=== PATIENT | female | born 1965 | race Caucasian/White ===

== ENCOUNTER 2018-04-11 00:25 | Inpatient (IN) | payer BC ==
[2018-04-11] MEDS ORDERED: morphine 2 MG INJ IV (01:30)
[2018-04-11] MEDS ORDERED: ONDANSETRON 4 MG INJ IV (01:30)
[2018-04-11] MEDS ORDERED: LORAZEPAM 2 MG INJ IM (01:30)
[2018-04-11] MEDS ORDERED: ACETAMINOPHEN 325 MG TAB PO (01:30)
[2018-04-11] MEDS ORDERED: LORAZEPAM 2 MG INJ (01:51)
[2018-04-11] MEDS: LORAZEPAM 2 MG INJ IV ×3 (02:12→22:07)
[2018-04-11] MEDS: MIRTAZAPINE 15 MG TAB PO ×2 (02:28→21:45)
[2018-04-11 07:03] LABS: ADD MAN DIFF? NO
[2018-04-11 07:12] LABS: BASOPHILS % 0.4 % (0.0-2.0); EOSINOPHILS # 0.1 10^3/ul (0.0-0.5); EOSINOPHILS % 1.7 % (0.0-7.0); HEMATOCRIT 40.3 % (37.0-47.0); HEMOGLOBIN 13.4 g/dl (12.0-16.0); LYMPHOCYTES # 1.8 10^3/ul (0.8-2.9); LYMPHOCYTES % 35.4 % (15.0-51.0); MEAN CORPUSCULAR HEMOGLOBIN 29.1 pg (29.0-33.0); MEAN CORPUSCULAR HGB CONC 33.3 g/dl (32.0-37.0); MEAN CORPUSCULAR VOLUME 87.4 fl (82.0-101.0); MEAN PLATELET VOLUME 10.6 fl (7.4-10.4); MONOCYTE # 0.5 10^3/ul (0.3-0.9); MONOCYTES % 10.1 % (0.0-11.0); NEUTROPHIL # 2.7 10^3/ul (1.6-7.5); NEUTROPHILS % 52.2 % (39.0-77.0); PLATELET COUNT 198 10^3/UL (140-415); RED BLOOD COUNT 4.61 10^6/ul (4.20-5.40); RED CELL DISTRIBUTION WIDTH 12.5 % (11.5-14.5)
[2018-04-11 07:12] LABS: WHITE BLOOD COUNT 5.2 10^3/ul (4.8-10.8)
[2018-04-11 07:26] LABS: HEMOGLOBIN A1C 5.3 % (0-5.9)
[2018-04-11 07:50] LABS: ALANINE AMINOTRANSFERASE 31 IU/L (13-69); ALBUMIN 3.6 g/dl (3.3-4.9); ALBUMIN/GLOBULIN RATIO 1.12; ALKALINE PHOSPHATASE 57 IU/L (42-121); ANION GAP 13 (8-16); ASPARTATE AMINO TRANSFERASE 25 IU/L (15-46); BILIRUBIN,INDIRECT 0.3 mg/dl (0-1.1); BILIRUBIN,TOTAL 0.3 mg/dl (0.2-1.3); BLOOD UREA NITROGEN 12 mg/dl (7-20); CALCIUM 9.2 mg/dl (8.4-10.2); CARBON DIOXIDE 30 mmol/L (21-31); CHLORIDE 106 mmol/L (97-110); CREATININE 0.73 mg/dl (0.44-1.00); GLUCOSE 121 mg/dl (70-220); MAGNESIUM 2.1 mg/dl (1.7-2.5); PHOSPHORUS 3.7 mg/dl (2.5-4.9); POTASSIUM 3.7 mmol/L (3.5-5.1); SODIUM 145 mmol/L (135-144); TOTAL PROTEIN 6.8 g/dl (6.1-8.1)
[2018-04-11] MEDS: ASPIRIN 81 MG TAB PO (08:42)
[2018-04-11] MEDS: LISINOPRIL 10 MG TAB PO (08:42)
[2018-04-11] MEDS: HEPARIN 5,000 UNIT/0.5 ML VIAL SC ×2 (08:53→22:05)
[2018-04-11] MEDS ORDERED: MIRTAZAPINE 15 MG TAB PO (21:00)
[2018-04-11] MEDS: ATORVASTATIN 20 MG TAB PO (21:00)
[2018-04-12 06:34] LABS: ADD MAN DIFF? NO
[2018-04-12 06:40] LABS: BASOPHILS % 0.5 % (0.0-2.0); EOSINOPHILS # 0.1 10^3/ul (0.0-0.5); HEMATOCRIT 39.6 % (37.0-47.0); LYMPHOCYTES % 44.6 % (15.0-51.0); MEAN CORPUSCULAR HGB CONC 32.8 g/dl (32.0-37.0); MEAN CORPUSCULAR VOLUME 88.2 fl (82.0-101.0); MEAN PLATELET VOLUME 10.4 fl (7.4-10.4); MONOCYTE # 0.4 10^3/ul (0.3-0.9); MONOCYTES % 9.6 % (0.0-11.0); NEUTROPHIL # 1.9 10^3/ul (1.6-7.5); NEUTROPHILS % 42.1 % (39.0-77.0); PLATELET COUNT 171 10^3/UL (140-415); RED BLOOD COUNT 4.49 10^6/ul (4.20-5.40); RED CELL DISTRIBUTION WIDTH 12.5 % (11.5-14.5)
[2018-04-12 06:40] LABS: WHITE BLOOD COUNT 4.4 10^3/ul (4.8-10.8)
[2018-04-12 07:10] LABS: ANION GAP 12 (8-16); BLOOD UREA NITROGEN 12 mg/dl (7-20); CALCIUM 9.1 mg/dl (8.4-10.2); CARBON DIOXIDE 27 mmol/L (21-31); CHLORIDE 109 mmol/L (97-110); CREATININE 0.71 mg/dl (0.44-1.00); GLUCOSE 85 mg/dl (70-220); MAGNESIUM 2.1 mg/dl (1.7-2.5); PHOSPHORUS 4.4 mg/dl (2.5-4.9); POTASSIUM 4.1 mmol/L (3.5-5.1); SODIUM 144 mmol/L (135-144)
[2018-04-12] MEDS: LISINOPRIL 10 MG TAB PO (08:34)
[2018-04-12] MEDS: ASPIRIN 81 MG TAB PO (08:34)
[2018-04-12] MEDS: HEPARIN 5,000 UNIT/0.5 ML VIAL SC ×2 (08:40→20:38)
[2018-04-12] MEDS: LORAZEPAM 2 MG INJ IV (20:26)
[2018-04-12] MEDS: ATORVASTATIN 20 MG TAB PO (20:26)
[2018-04-12] MEDS: ZOLPIDEM 5 MG TAB PO (23:24)
[2018-04-13 07:45] LABS: ADD MAN DIFF? NO
[2018-04-13 07:47] LABS: WHITE BLOOD COUNT 4.7 10^3/ul (4.8-10.8)
[2018-04-13 07:47] LABS: BASOPHILS % 0.4 % (0.0-2.0); EOSINOPHILS # 0.1 10^3/ul (0.0-0.5); EOSINOPHILS % 2.5 % (0.0-7.0); HEMATOCRIT 39.5 % (37.0-47.0); HEMOGLOBIN 13.1 g/dl (12.0-16.0); LYMPHOCYTES # 2.1 10^3/ul (0.8-2.9); LYMPHOCYTES % 44.1 % (15.0-51.0); MEAN CORPUSCULAR HEMOGLOBIN 29.2 pg (29.0-33.0); MEAN CORPUSCULAR HGB CONC 33.2 g/dl (32.0-37.0); MEAN PLATELET VOLUME 10.4 fl (7.4-10.4); MONOCYTE # 0.4 10^3/ul (0.3-0.9); MONOCYTES % 9.1 % (0.0-11.0); NEUTROPHIL # 2.1 10^3/ul (1.6-7.5); NEUTROPHILS % 43.7 % (39.0-77.0); PLATELET COUNT 188 10^3/UL (140-415); RED BLOOD COUNT 4.49 10^6/ul (4.20-5.40); RED CELL DISTRIBUTION WIDTH 12.2 % (11.5-14.5)
[2018-04-13 08:40] LABS: ANION GAP 12 (8-16); BLOOD UREA NITROGEN 9 mg/dl (7-20); CALCIUM 9.1 mg/dl (8.4-10.2); CARBON DIOXIDE 29 mmol/L (21-31); CHLORIDE 108 mmol/L (97-110); CREATININE 0.69 mg/dl (0.44-1.00); GLUCOSE 85 mg/dl (70-220); PHOSPHORUS 4.6 mg/dl (2.5-4.9); POTASSIUM 4.2 mmol/L (3.5-5.1); SODIUM 145 mmol/L (135-144)
[2018-04-13 08:46] LABS: CHOLESTEROL 182 mg/dl (100-200)
[2018-04-13 08:46] LABS: CHOL/HDL RATIO 2.9 RATIO; HDL CHOLESTEROL 61 mg/dl (37-92); LDL CHOLESTEROL,CALCULATED 80 mg/dl; TRIGLYCERIDES 207 mg/dl (0-149)
[2018-04-13] MEDS: LISINOPRIL 10 MG TAB PO (08:52)
[2018-04-13] MEDS: ASPIRIN 81 MG TAB PO (08:52)
[2018-04-13] MEDS: HEPARIN 5,000 UNIT/0.5 ML VIAL SC ×2 (09:00→20:38)
[2018-04-13] MEDS ORDERED: morphine LIQ (10 MG/5 ML) CUP PO (15:00)
[2018-04-13] MEDS: ATORVASTATIN 20 MG TAB PO (20:34)
[2018-04-13] MEDS: ZOLPIDEM 5 MG TAB PO (20:41)
[2018-04-14] MEDS: LISINOPRIL 10 MG TAB PO (09:48)
[2018-04-14] MEDS: ASPIRIN 81 MG TAB PO (09:48)
[2018-04-14] MEDS: HEPARIN 5,000 UNIT/0.5 ML VIAL SC ×2 (09:52→20:54)
[2018-04-14] MEDS: LORAZEPAM 2 MG INJ IV (13:32)
[2018-04-14] MEDS: ATORVASTATIN 20 MG TAB PO (20:47)
[2018-04-14] MEDS: PANTOPRAZOLE (EC) 40 MG TAB PO (20:47)
[2018-04-15] MEDS: LORAZEPAM 2 MG INJ IV (00:13)
[2018-04-15] MEDS: ZOLPIDEM 5 MG TAB PO ×2 (03:21→21:05)
[2018-04-15] MEDS: ASPIRIN 81 MG TAB PO (09:24)
[2018-04-15] MEDS: LISINOPRIL 10 MG TAB PO (09:24)
[2018-04-15] MEDS: HEPARIN 5,000 UNIT/0.5 ML VIAL SC ×2 (09:26→21:16)
[2018-04-15] MEDS: CYCLOBENZAPRINE 10 MG TAB PO ×2 (12:48→21:05)
[2018-04-15] MEDS: ATORVASTATIN 20 MG TAB PO (21:05)
[2018-04-15] MEDS: PANTOPRAZOLE (EC) 40 MG TAB PO (21:05)
[2018-04-16] MEDS: LISINOPRIL 10 MG TAB PO (09:35)
[2018-04-16] MEDS: ASPIRIN 81 MG TAB PO (09:35)
[2018-04-16] MEDS: CYCLOBENZAPRINE 10 MG TAB PO ×2 (09:35→13:00)
[2018-04-16] MEDS: HEPARIN 5,000 UNIT/0.5 ML VIAL SC (09:42)
== END 2018-04-16 19:45 | disposition home or self-care (01) | DRG 57 ==
LOC: TEL 00:25 → MS1 04-14 23:50
DX: G25.89 Other specified extrapyramidal and movement disorders (principal); I71.2 Thoracic aortic aneurysm, without rupture; R20.0 Anesthesia of skin; I10 Essential (primary) hypertension; F32.9 Major depressive disorder, single episode, unspecified; M62.838 Other muscle spasm; G47.00 Insomnia, unspecified; D35.00 Benign neoplasm of unspecified adrenal gland; G25.5 Other chorea; Z79.82 Long term (current) use of aspirin; Z79.02 Long term (current) use of antithrombotics/antiplatelets
CPT/HCPCS: 70544; 70549; 70551; 80048; 80053; 80061; 83036; 83735; 84100; 84443; 85025; 93306; 95819; 97110; 97116; 97163

== ENCOUNTER 2018-06-02 03:50 | Observation (INO) | payer BC ==
[2018-06-02] MEDS ORDERED: ACETAMINOPHEN 325 MG TAB PO (05:30)
[2018-06-02] MEDS ORDERED: NACL 0.9% 3 ML SYG IV (05:30)
[2018-06-02] MEDS ORDERED: NITROGLYCERIN (SL) 0.4 MG TAB SL (05:30)
[2018-06-02] MEDS ORDERED: morphine 2 MG INJ IV (05:30)
[2018-06-02] MEDS ORDERED: ONDANSETRON 4 MG INJ IV (05:30)
[2018-06-02 05:58] LABS: ADD MAN DIFF? NO
[2018-06-02 06:04] LABS: WHITE BLOOD COUNT 5.1 10^3/ul (4.8-10.8)
[2018-06-02 06:04] LABS: BASOPHILS % 0.8 % (0.0-2.0); EOSINOPHILS # 0.1 10^3/ul (0.0-0.5); EOSINOPHILS % 1.8 % (0.0-7.0); HEMOGLOBIN 14.4 g/dl (12.0-16.0); LYMPHOCYTES # 1.9 10^3/ul (0.8-2.9); LYMPHOCYTES % 37.6 % (15.0-51.0); MEAN CORPUSCULAR HEMOGLOBIN 29.4 pg (29.0-33.0); MEAN CORPUSCULAR HGB CONC 33.5 g/dl (32.0-37.0); MEAN CORPUSCULAR VOLUME 87.8 fl (82.0-101.0); MEAN PLATELET VOLUME 10.2 fl (7.4-10.4); MONOCYTE # 0.5 10^3/ul (0.3-0.9); MONOCYTES % 9.2 % (0.0-11.0); NEUTROPHIL # 2.6 10^3/ul (1.6-7.5); NEUTROPHILS % 50.4 % (39.0-77.0); PLATELET COUNT 215 10^3/UL (140-415); RED CELL DISTRIBUTION WIDTH 12.9 % (11.5-14.5)
[2018-06-02 06:39] LABS: CREATINE KINASE 61 IU/L (23-200)
[2018-06-02 06:49] LABS: CK INDEX 0.4; CK-MB < 0.22 ng/ml (0.0-2.4); TROPONIN-I < 0.010 ng/ml (0.000-0.120)
[2018-06-02 08:04] LABS: ALANINE AMINOTRANSFERASE 31 IU/L (13-69); ALBUMIN 4.2 g/dl (3.3-4.9); ALBUMIN/GLOBULIN RATIO 1.35; ALKALINE PHOSPHATASE 59 IU/L (42-121); ANION GAP 15 (8-16); ASPARTATE AMINO TRANSFERASE 23 IU/L (15-46); BILIRUBIN,INDIRECT 0.4 mg/dl (0-1.1); BILIRUBIN,TOTAL 0.4 mg/dl (0.2-1.3); BLOOD UREA NITROGEN 8 mg/dl (7-20); CALCIUM 9.7 mg/dl (8.4-10.2); CARBON DIOXIDE 25 mmol/L (21-31); CHLORIDE 106 mmol/L (97-110); CREATININE 0.75 mg/dl (0.44-1.00); GLUCOSE 95 mg/dl (70-220); POTASSIUM 4.3 mmol/L (3.5-5.1); SODIUM 142 mmol/L (135-144); TOTAL PROTEIN 7.3 g/dl (6.1-8.1)
[2018-06-02] MEDS: ASPIRIN 81 MG TAB PO (08:24)
[2018-06-02] MEDS: METOPROLOL (XL) 50 MG TAB PO (09:13)
[2018-06-02] MEDS: METOPROLOL 50 MG TAB PO ×2 (10:45→10:52)
[2018-06-02] MEDS: HYDROCHLOROTHIAZIDE 12.5 MG CAP PO (10:59)
[2018-06-02] MEDS: LOSARTAN 25 MG TAB PO (11:00)
[2018-06-02 12:14] LABS: CREATINE KINASE 55 IU/L (23-200)
[2018-06-02 12:24] LABS: CK INDEX 0.4; CK-MB < 0.22 ng/ml (0.0-2.4)
[2018-06-02 12:41] LABS: TROPONIN-I < 0.010 ng/ml (0.000-0.120)
[2018-06-02] MEDS: SOD CHLORIDE 0.9% 100 ML (13:49)
[2018-06-02] MEDS: IOHEXOL 100 ML (13:49)
[2018-06-02] MEDS: NITROGLYCERIN AEROSOL (4.9 GM) (13:54)
[2018-06-02] MEDS: ATORVASTATIN 20 MG TAB PO (20:53)
[2018-06-02] MEDS: DOXAZOSIN 1 MG TAB PO (21:00)
[2018-06-02] MEDS: ZOLPIDEM 5 MG TAB PO (22:04)
[2018-06-02] MEDS ORDERED: morphine LIQ (10 MG/5 ML) CUP PO (23:30)
[2018-06-03] MEDS: HYDROCHLOROTHIAZIDE 12.5 MG CAP PO (05:34)
[2018-06-03] MEDS: DOCUSATE SODIUM 100 MG CAP PO ×2 (06:19→20:34)
[2018-06-03] MEDS: ASPIRIN 81 MG TAB PO (08:21)
[2018-06-03] MEDS: LOSARTAN 25 MG TAB PO (08:21)
[2018-06-03] MEDS: METOPROLOL (XL) 50 MG TAB PO (08:22)
[2018-06-03] MEDS: BISACODYL (EC) 5 MG TAB PO (11:44)
[2018-06-03] MEDS ORDERED: SOD CHLORIDE 0.9% 100 ML (17:12)
[2018-06-03] MEDS ORDERED: IOHEXOL 300MG/ML 150 ML BTL (17:12)
[2018-06-03] MEDS: ATORVASTATIN 20 MG TAB PO (20:34)
[2018-06-03] MEDS: DOXAZOSIN 1 MG TAB PO (20:36)
[2018-06-03] MEDS: ZOLPIDEM 5 MG TAB PO (22:25)
[2018-06-04] MEDS: HYDROCHLOROTHIAZIDE 12.5 MG CAP PO (06:03)
[2018-06-04 08:41] LABS: ADD MAN DIFF? NO
[2018-06-04 08:47] LABS: BASOPHILS % 0.3 % (0.0-2.0); EOSINOPHILS # 0.1 10^3/ul (0.0-0.5); EOSINOPHILS % 1.7 % (0.0-7.0); HEMATOCRIT 45.2 % (37.0-47.0); HEMOGLOBIN 14.8 g/dl (12.0-16.0); LYMPHOCYTES # 1.8 10^3/ul (0.8-2.9); MEAN CORPUSCULAR HEMOGLOBIN 28.3 pg (29.0-33.0); MEAN CORPUSCULAR HGB CONC 32.7 g/dl (32.0-37.0); MEAN CORPUSCULAR VOLUME 86.4 fl (82.0-101.0); MEAN PLATELET VOLUME 10.6 fl (7.4-10.4); MONOCYTE # 0.5 10^3/ul (0.3-0.9); NEUTROPHIL # 3.6 10^3/ul (1.6-7.5); NEUTROPHILS % 58.8 % (39.0-77.0); PLATELET COUNT 216 10^3/UL (140-415); RED BLOOD COUNT 5.23 10^6/ul (4.20-5.40); RED CELL DISTRIBUTION WIDTH 13.1 % (11.5-14.5)
[2018-06-04] MEDS: ASPIRIN 81 MG TAB PO (09:10)
[2018-06-04] MEDS: LOSARTAN 25 MG TAB PO (09:11)
[2018-06-04] MEDS: METOPROLOL (XL) 50 MG TAB PO (09:11)
[2018-06-04 09:30] LABS: ALANINE AMINOTRANSFERASE 27 IU/L (13-69); ALBUMIN 4.4 g/dl (3.3-4.9); ALBUMIN/GLOBULIN RATIO 1.37; ALKALINE PHOSPHATASE 55 IU/L (42-121); ANION GAP 15 (8-16); ASPARTATE AMINO TRANSFERASE 32 IU/L (15-46); BILIRUBIN,INDIRECT 0.6 mg/dl (0-1.1); BILIRUBIN,TOTAL 0.6 mg/dl (0.2-1.3); BLOOD UREA NITROGEN 13 mg/dl (7-20); CALCIUM 9.4 mg/dl (8.4-10.2); CARBON DIOXIDE 25 mmol/L (21-31); CHLORIDE 105 mmol/L (97-110); CREATININE 0.75 mg/dl (0.44-1.00); GLUCOSE 91 mg/dl (70-220); POTASSIUM 3.8 mmol/L (3.5-5.1); SODIUM 141 mmol/L (135-144); TOTAL PROTEIN 7.6 g/dl (6.1-8.1)
[2018-06-04] MEDS ORDERED: IOHEXOL 14.3 MG(I)/ML (ADULT) BTL PO (14:00)
[2018-06-04] MEDS: IOHEXOL 14.3 MG(I)/ML (ADULT) BTL PO (15:09)
[2018-06-04] MEDS ORDERED: SOD CHLORIDE 0.9% 100 ML (16:04)
[2018-06-04] MEDS ORDERED: IOHEXOL 300MG/ML 150 ML BTL (16:04)
[2018-06-04] MEDS: DOXAZOSIN 2 MG TAB PO (21:00)
[2018-06-04] MEDS: ZOLPIDEM 5 MG TAB PO (21:21)
[2018-06-04] MEDS: ATORVASTATIN 20 MG TAB PO (21:21)
[2018-06-05] MEDS: HYDROCHLOROTHIAZIDE 12.5 MG CAP PO (06:03)
[2018-06-05 08:07] LABS: ADD MAN DIFF? NO
[2018-06-05] MEDS: ASPIRIN 81 MG TAB PO (08:13)
[2018-06-05] MEDS: METOPROLOL (XL) 50 MG TAB PO (08:14)
[2018-06-05] MEDS: LOSARTAN 25 MG TAB PO (08:14)
[2018-06-05 08:17] LABS: WHITE BLOOD COUNT 5.2 10^3/ul (4.8-10.8)
[2018-06-05 08:17] LABS: BASOPHILS % 0.4 % (0.0-2.0); EOSINOPHILS # 0.1 10^3/ul (0.0-0.5); EOSINOPHILS % 1.7 % (0.0-7.0); HEMATOCRIT 42.7 % (37.0-47.0); HEMOGLOBIN 14.1 g/dl (12.0-16.0); LYMPHOCYTES # 1.7 10^3/ul (0.8-2.9); LYMPHOCYTES % 33.1 % (15.0-51.0); MEAN CORPUSCULAR HEMOGLOBIN 28.9 pg (29.0-33.0); MEAN CORPUSCULAR VOLUME 87.5 fl (82.0-101.0); MEAN PLATELET VOLUME 10.6 fl (7.4-10.4); MONOCYTE # 0.5 10^3/ul (0.3-0.9); MONOCYTES % 9.1 % (0.0-11.0); NEUTROPHIL # 2.9 10^3/ul (1.6-7.5); NEUTROPHILS % 55.5 % (39.0-77.0); PLATELET COUNT 204 10^3/UL (140-415); RED BLOOD COUNT 4.88 10^6/ul (4.20-5.40); RED CELL DISTRIBUTION WIDTH 12.9 % (11.5-14.5)
[2018-06-05 09:00] LABS: ANION GAP 11 (8-16); BLOOD UREA NITROGEN 13 mg/dl (7-20); CALCIUM 9.5 mg/dl (8.4-10.2); CARBON DIOXIDE 27 mmol/L (21-31); CHLORIDE 105 mmol/L (97-110); CREATININE 0.72 mg/dl (0.44-1.00); GLUCOSE 88 mg/dl (70-220); POTASSIUM 4.1 mmol/L (3.5-5.1); SODIUM 139 mmol/L (135-144)
[2018-06-05] MEDS: ATORVASTATIN 20 MG TAB PO (20:33)
[2018-06-05] MEDS: DOXAZOSIN 2 MG TAB PO (20:33)
[2018-06-05] MEDS: ZOLPIDEM 5 MG TAB PO (22:22)
[2018-06-06] MEDS: HYDROCHLOROTHIAZIDE 12.5 MG CAP PO (05:38)
[2018-06-06 06:29] LABS: ADD MAN DIFF? NO
[2018-06-06 06:31] LABS: WHITE BLOOD COUNT 5.7 10^3/ul (4.8-10.8)
[2018-06-06 06:31] LABS: BASOPHILS % 0.4 % (0.0-2.0); EOSINOPHILS # 0.1 10^3/ul (0.0-0.5); EOSINOPHILS % 2.1 % (0.0-7.0); HEMOGLOBIN 13.3 g/dl (12.0-16.0); LYMPHOCYTES # 1.8 10^3/ul (0.8-2.9); LYMPHOCYTES % 31.3 % (15.0-51.0); MEAN CORPUSCULAR HEMOGLOBIN 28.4 pg (29.0-33.0); MEAN CORPUSCULAR HGB CONC 32.4 g/dl (32.0-37.0); MEAN CORPUSCULAR VOLUME 87.6 fl (82.0-101.0); MEAN PLATELET VOLUME 10.7 fl (7.4-10.4); MONOCYTE # 0.5 10^3/ul (0.3-0.9); NEUTROPHIL # 3.2 10^3/ul (1.6-7.5); PLATELET COUNT 194 10^3/UL (140-415); RED BLOOD COUNT 4.68 10^6/ul (4.20-5.40)
[2018-06-06 07:07] LABS: ANION GAP 11 (8-16); BLOOD UREA NITROGEN 14 mg/dl (7-20); CALCIUM 9.2 mg/dl (8.4-10.2); CARBON DIOXIDE 26 mmol/L (21-31); CHLORIDE 105 mmol/L (97-110); CREATININE 0.71 mg/dl (0.44-1.00); GLUCOSE 93 mg/dl (70-220); SODIUM 138 mmol/L (135-144)
[2018-06-06] MEDS: ASPIRIN 81 MG TAB PO (09:54)
[2018-06-06] MEDS: METOPROLOL (XL) 50 MG TAB PO (09:55)
[2018-06-06] MEDS: LOSARTAN 25 MG TAB PO (09:55)
== END 2018-06-06 17:25 | disposition home or self-care (01) ==
LOC: TEL 03:50
DX: R07.9 Chest pain, unspecified (principal); R00.2 Palpitations; I10 Essential (primary) hypertension; F32.9 Major depressive disorder, single episode, unspecified; G47.00 Insomnia, unspecified; I71.2 Thoracic aortic aneurysm, without rupture; K21.9 Gastro-esophageal reflux disease without esophagitis; F41.9 Anxiety disorder, unspecified; Z88.0 Allergy status to penicillin
CPT/HCPCS: 71260; 71550; 74177; 74181; 75574; 80048; 80053; 82382; 82384; 82550; 82553; 83036; 83835; 84443; 84484; 85025; 93005; G0378

== ENCOUNTER 2018-06-18 01:40 | Inpatient (IN) | payer BC ==
[2018-06-18] MEDS ORDERED: ONDANSETRON 4 MG INJ IV ×2 (03:00→10:00)
[2018-06-18] MEDS ORDERED: ACETAMINOPHEN 325 MG TAB PO ×2 (03:00→10:00)
[2018-06-18 06:40] LABS: ADD MAN DIFF? NO
[2018-06-18 06:44] LABS: BASOPHILS % 0.2 % (0.0-2.0); EOSINOPHILS # 0.1 10^3/ul (0.0-0.5); EOSINOPHILS % 2.3 % (0.0-7.0); HEMATOCRIT 38.5 % (37.0-47.0); HEMOGLOBIN 12.6 g/dl (12.0-16.0); LYMPHOCYTES # 1.9 10^3/ul (0.8-2.9); LYMPHOCYTES % 36.1 % (15.0-51.0); MEAN CORPUSCULAR HEMOGLOBIN 29.1 pg (29.0-33.0); MEAN CORPUSCULAR HGB CONC 32.7 g/dl (32.0-37.0); MEAN CORPUSCULAR VOLUME 88.9 fl (82.0-101.0); MEAN PLATELET VOLUME 10.4 fl (7.4-10.4); MONOCYTE # 0.5 10^3/ul (0.3-0.9); NEUTROPHIL # 2.7 10^3/ul (1.6-7.5); NEUTROPHILS % 52.2 % (39.0-77.0); PLATELET COUNT 182 10^3/UL (140-415); RED BLOOD COUNT 4.33 10^6/ul (4.20-5.40)
[2018-06-18 06:44] LABS: WHITE BLOOD COUNT 5.2 10^3/ul (4.8-10.8)
[2018-06-18 07:16] LABS: ALANINE AMINOTRANSFERASE 22 IU/L (13-69); ALBUMIN 3.6 g/dl (3.3-4.9); ALKALINE PHOSPHATASE 45 IU/L (42-121); ANION GAP 10 (8-16); ASPARTATE AMINO TRANSFERASE 22 IU/L (15-46); BILIRUBIN,INDIRECT 0.3 mg/dl (0-1.1); BILIRUBIN,TOTAL 0.3 mg/dl (0.2-1.3); BLOOD UREA NITROGEN 10 mg/dl (7-20); CALCIUM 9.1 mg/dl (8.4-10.2); CARBON DIOXIDE 25 mmol/L (21-31); CHLORIDE 109 mmol/L (97-110); CREATININE 0.79 mg/dl (0.44-1.00); GLUCOSE 95 mg/dl (70-220); POTASSIUM 3.8 mmol/L (3.5-5.1); SODIUM 140 mmol/L (135-144); TOTAL PROTEIN 6.6 g/dl (6.1-8.1)
[2018-06-18 08:24] LABS: TROPONIN-I < 0.010 ng/ml (0.000-0.120)
[2018-06-18] MEDS ORDERED: ALBUTEROL/IPRATROPIUM (NEB) 3 ML AMP HHN (10:00)
[2018-06-18] MEDS ORDERED: NACL 0.9% 3 ML SYG IV (10:00)
[2018-06-18 15:21] LABS: TROPONIN-I < 0.010 ng/ml (0.000-0.120)
[2018-06-18] MEDS ORDERED: hydrALAzine 20 MG INJ IV (16:30)
[2018-06-18] MEDS ORDERED: LOSARTAN 25 MG TAB PO (16:30)
[2018-06-18] MEDS: LOSARTAN 25 MG TAB PO (16:30)
[2018-06-18] MEDS: HYDROCHLOROTHIAZIDE 12.5 MG CAP PO (18:07)
[2018-06-18] MEDS: METOPROLOL (XL) 50 MG TAB PO (18:08)
[2018-06-18] MEDS: ATORVASTATIN 20 MG TAB PO (20:27)
[2018-06-18] MEDS: DOXAZOSIN 2 MG TAB PO (20:28)
[2018-06-18] MEDS: MIRTAZAPINE 15 MG TAB PO (20:29)
[2018-06-19 07:34] LABS: ADD MAN DIFF? NO
[2018-06-19 07:40] LABS: BASOPHILS % 0.6 % (0.0-2.0); EOSINOPHILS # 0.1 10^3/ul (0.0-0.5); EOSINOPHILS % 2.5 % (0.0-7.0); HEMATOCRIT 43.2 % (37.0-47.0); HEMOGLOBIN 14.2 g/dl (12.0-16.0); LYMPHOCYTES # 1.8 10^3/ul (0.8-2.9); LYMPHOCYTES % 34.3 % (15.0-51.0); MEAN CORPUSCULAR HEMOGLOBIN 28.5 pg (29.0-33.0); MEAN CORPUSCULAR HGB CONC 32.9 g/dl (32.0-37.0); MEAN CORPUSCULAR VOLUME 86.6 fl (82.0-101.0); MEAN PLATELET VOLUME 10.5 fl (7.4-10.4); MONOCYTE # 0.5 10^3/ul (0.3-0.9); MONOCYTES % 8.8 % (0.0-11.0); NEUTROPHIL # 2.7 10^3/ul (1.6-7.5); NEUTROPHILS % 53.6 % (39.0-77.0); PLATELET COUNT 189 10^3/UL (140-415); RED BLOOD COUNT 4.99 10^6/ul (4.20-5.40); RED CELL DISTRIBUTION WIDTH 13.3 % (11.5-14.5)
[2018-06-19 07:40] LABS: WHITE BLOOD COUNT 5.1 10^3/ul (4.8-10.8)
[2018-06-19 08:05] LABS: PHOSPHORUS 4.6 mg/dl (2.5-4.9)
[2018-06-19 08:09] LABS: ALANINE AMINOTRANSFERASE 28 IU/L (13-69); ALBUMIN 4.2 g/dl (3.3-4.9); ALBUMIN/GLOBULIN RATIO 1.31; ALKALINE PHOSPHATASE 57 IU/L (42-121); ANION GAP 10 (8-16); ASPARTATE AMINO TRANSFERASE 25 IU/L (15-46); BILIRUBIN,INDIRECT 0.6 mg/dl (0-1.1); BILIRUBIN,TOTAL 0.6 mg/dl (0.2-1.3); BLOOD UREA NITROGEN 9 mg/dl (7-20); CALCIUM 9.7 mg/dl (8.4-10.2); CARBON DIOXIDE 30 mmol/L (21-31); CHLORIDE 103 mmol/L (97-110); CREATININE 0.72 mg/dl (0.44-1.00); GLUCOSE 94 mg/dl (70-220); POTASSIUM 3.8 mmol/L (3.5-5.1); SODIUM 139 mmol/L (135-144); TOTAL PROTEIN 7.4 g/dl (6.1-8.1)
[2018-06-19] MEDS: LOSARTAN 25 MG TAB PO (08:27)
[2018-06-19] MEDS: HYDROCHLOROTHIAZIDE 12.5 MG CAP PO (08:27)
[2018-06-19] MEDS: ASPIRIN 81 MG TAB PO (08:28)
[2018-06-19] MEDS: METOPROLOL (XL) 50 MG TAB PO (08:28)
[2018-06-19] MEDS ORDERED: METOPROLOL (XL) 50 MG TAB PO (09:00)
[2018-06-19] MEDS ORDERED: LOSARTAN 25 MG TAB PO (09:00)
[2018-06-19] MEDS ORDERED: HYDROCHLOROTHIAZIDE 12.5 MG CAP PO (09:00)
== END 2018-06-19 13:41 | disposition home or self-care (01) | DRG 312 ==
LOC: TEL 01:40
DX: R55 Syncope and collapse (principal); I10 Essential (primary) hypertension; F32.9 Major depressive disorder, single episode, unspecified; I71.2 Thoracic aortic aneurysm, without rupture; D35.00 Benign neoplasm of unspecified adrenal gland; Z86.73 Personal history of transient ischemic attack (TIA), and cerebral infarction without residual deficits
CPT/HCPCS: 80053; 83735; 84100; 84484; 85025; 93880; 97161

== ENCOUNTER 2019-05-25 06:25 | Day surgery (SDC) | payer BC ==
[2019-05-25] MEDS ORDERED: FENTAnyl 50 MCG/ML VIAL (09:08)
[2019-05-25] MEDS ORDERED: MIDAZOLAM 1 MG/ML 2 ML INJ (09:08)
== END 2019-05-25 11:04 | disposition home or self-care (01) ==
LOC: GIL 06:25
DX: K44.9 Diaphragmatic hernia without obstruction or gangrene (principal); K29.30 Chronic superficial gastritis without bleeding; I10 Essential (primary) hypertension
CPT/HCPCS: 43239; 88305; 88312